=== PATIENT | female | born 1960 ===

== ENCOUNTER 2018-01-23 16:47 | Inpatient (IN) | payer BC ==
[~2018-01-23] VITALS: Ht 152.4 cm; Wt 62.1 kg
[~2018-01-23 16:47] MED LIST changes: -AZIT-1 PO; -FLU44R INH; -LEVA15HF INH; -PRED-1 PO
[2018-01-23] MEDS ORDERED: ALBUTEROL/IPRATROPIUM 3 ML NEB NEB ONE (17:10)
[2018-01-23] MEDS ORDERED: methylPREDNIS SUCC 125 MG/2ML IVP ONE (17:10)
--- NOTE | 2018-01-23 17:10 | ER Report ---
History and Physical Time Seen By MD: 17:10 Hx. of Stated Complaint: sent from urgent care with copd/resp issues. unable to keep o2 about 75% without supplimental HPI/ROS CHIEF COMPLAINT: Cough HISTORY OF PRESENT ILLNESS: 58-year-old female with no past medical history other than long time tobacco use, quit smoking 4 months ago, presents with 2 weeks of shortness of breath and cough. She reports the severity is moderate. She was seen in urgent care today and found to be hypoxic into the 70s. She has never been on home oxygen. Workup at urgent care includes a normal chest x-ray EKG, labs including CBC, metabolic panel, troponin, d-dimer, flu screen all normal. Given albuterol nebulizer treatment at urgent care but she remained hypoxic improving only to 78% on room air. She was sent to the ER for further evaluation. She denies fever, runny nose, rash, chest pain or discomfort. REVIEW OF SYSTEMS: Constitutional: No fever, no chills. Eyes: No discharge. ENT: No sore throat. Cardiovascular: No chest pain, no palpitations. Respiratory: As above. Gastrointestinal: No abdominal pain, no vomiting. Genitourinary: No hematuria. Musculoskeletal: No back pain. Skin: No rashes. Neurological: No headache. Allergies: Coded Allergies: ketorolac (Verified Allergy, Intermediate, KIDNEY PROBLEM, 01/23/18) morphine (Verified Adverse Reaction, Intermediate, HALLUCINATION, 01/23/18) Home Meds Discontinued Reported Medications Naproxen Na-Diphenhydramin HCl (Aleve Pm Caplet) 1 Each Tablet 03/18/15 Discontinued Scripts Hydrocodone/Acetaminophen (Lortab 5-325 mg Tablet) 1 Each Tablet, 1-2 TAB PO Q6H Y for PAIN, #12 Prov:DIONY BRADSHAWE DO 03/22/15 Ciprofloxacin 500 MG/5 ML ORAL SUSP (Ciprofloxacin 500 MG/5 ML ORAL SUSP) 500 Mg /5 Ml [facility].mc.rec, 500 MG PO BID, #14 BOT Prov:SARINA BRADSHAW DO 03/22/15 Metronidazole (FLAGYL) 500 Mg Tablet, 500 MG PO TID, #21 TAB Prov:AUGUSTINEHECTORSARINA DO 03/22/15 Ondansetron (ZOFRAN ODT) 4 Mg Tab.rapdis, 4 MG PO Q6H Y for NAUSEA/VOMITING, # 20 TAB 0 Refills Prov:MADELEINERICKY Disla MD 03/18/15 Past Medical/Surgical History No significant past medical history Hx Smoking: Yes Smoking Status: Current: Every Day Smoker Exposure to Second Hand Smoke?: Yes Hx Substance Use Disorder: No Hx Alcohol Use: No Constitutional Vital Sign - Last 24 Hours 01/23/18 01/23/18 01/23/18 01/23/18 16:52 17:11 17:20 17:20 Temp 97.9 Pulse 74 78 Resp 22 18 B/P (MAP) 147/84 Pulse Ox 91 86 O2 Delivery Nasal Cannula Room Air O2 Flow Rate 2.0 01/23/18 01/23/18 17:30 17:30 Pulse 85 Resp 18 Pulse Ox 96 O2 Delivery Nasal Cannula O2 Flow Rate 1.5 Physical Exam General Appearance: The patient is alert, has no immediate need for airway protection and no signs of toxicity. Eyes: Pupils equal and round no pallor or injection. ENT, Mouth: Mucous membranes are moist. Respiratory: No increased work of breathing, diffuse wheezing is noted. No rhonchi. Cardiovascular: Regular rate and rhythm. Gastrointestinal: Abdomen is soft and non tender, no masses, bowel sounds normal. Neurological: Alert and oriented 3, no motor or sensory deficits. Skin: Warm and dry, no rashes. Musculoskeletal: Neck is supple non tender. Extremities are nontender, nonswollen and have full range of motion. DIFFERENTIAL DIAGNOSIS: After history and physical exam differential diagnosis was considered for shortness of breath including but not limited to pulmonary infectious process, COPD, asthma, pulmonary embolus and congestive heart failure. Medical Decision Making Data Points Laboratory Hematology Test 01/23/18 17:03 Group A Streptococcus Screen Negative (NEGATIVE) Chemistry Test 01/23/18 17:03 Group A Streptococcus Screen Negative (NEGATIVE) EKG/Imaging EKG Interpretation 12 lead EKG: Rhythm: normal sinus rhythm, rate 74 bpm [place]: normal QRS: normal ST segments: normal ED Course/Re-evaluation ED Course Patient is a 58-year-old female, previous heavy tobacco use, presents with hypoxia, shortness of breath and cough. She has never been diagnosed with COPD but her exam today together with wheezing hypoxia and normal urgent care workup including negative chest x-ray, negative d-dimer, negative troponin and normal EKG is consistent with a COPD exacerbation. She was given DuoNeb and Solu- Medrol in the ER and required 2 L of oxygen to maintain sats in the 90s. I spoke with the hospitalist who agreed with the patient continue COPD treatments and discharged patient on appropriate therapy. Decision to Disposition Date: Jan 23, 2018 Decision to Disposition Time: 17:54 Depart Departure Latest Vital Signs Vital Signs Date Time Temp Pulse Resp B/P (MAP) Pulse Ox O2 Delivery O2 Flow Rate FiO2 01/23/18 17:30 96 Nasal Cannula 1.5 01/23/18 17:30 85 18 01/23/18 16:52 97.9 147/84 Impression: Primary Impression: COPD exacerbation Additional Impression: Hypoxia Condition: Improved Disposition: Admitted from ER New Scripts No Active Prescriptions or Reported Meds Problem Qualifiers HOWARD CUNNINGHAM MD Jan 23, 2018 17:10
--- NOTE | 2018-01-23 17:35 | EKG ---
FACILITY: [facility] PATIENT NAME: KERA ERNST : [id number] MR: [id number] V: [id number] EXAM DATE: ORDERING PHYSICIAN: HOWARD CUNNINGHAM TECHNOLOGIST: CIELO Garcia Reason : RESPIRATORY Blood Pressure : / mmHG Vent. Rate : 074 BPM Atrial Rate : 074 BPM P-R Int : 142 ms QRS Dur : 068 ms QT Int : 388 ms P-R-T Axes : 034 012 001 degrees QTc Int : 430 ms Normal sinus rhythm T inversion consistent with inferior ischemia vs normal variant When compared with ECG of 06-JAN-2014 10:06, Criteria for Septal infarct are no longer present ST no longer elevated in Lateral leads Inverted T waves have replaced nonspecific T wave abnormality in Inferior leads Nonspecific T wave abnormality now evident in Lateral leads Confirmed by TALIB ELLIS ([id number]) on 01/24/2018 7:47:55 PM Referred By: Confirmed By:TALIB ELLIS
[2018-01-23 18:26] VITALS: BP 105/90
--- NOTE | 2018-01-23 19:01 | History & Physical ---
History of Present Illness Chief Complaint Patient was sent from urgent care with COPD exacerbation and she was unable to keep her O2 sat about 75% without supplement History of Present Illness Mrs. Fulton is a 58-year-old female with no past medical history other than 30 pack years of smoking cigarettes. She quit smoking 4 months ago. She mentioned that she [place] to this [place] area 5 years ago from [place] and since then she has been feeling off and on PACE. She has developed URTI recently and today she presented to the ER @ [facility] with 2 weeks of shortness of breath and cough. She reported the severity was moderate. She was seen in urgent care today and found to be hypoxic into the O2 sat 70s. She has never been on home oxygen. Workup at urgent care was in normal range including a normal chest x-ray, EKG, labs including CBC, metabolic panel, troponin, d-dimer, flu screen. She was given albuterol nebulizer treatment at urgent care but she remained hypoxic improving only to 78% on room air. She was sent to the ER for further evaluation. She was given DuoNeb and Solu-Medrol in the ER and required 2 L of oxygen to maintain sats in the 90s. She denied fever , runny nose, rash, chest pain or discomfort. History Home Meds Discontinued Reported Medications Naproxen Na-Diphenhydramin HCl (Aleve Pm Caplet) 1 Each Tablet 03/18/15 Discontinued Scripts Hydrocodone/Acetaminophen (Lortab 5-325 mg Tablet) 1 Each Tablet, 1-2 TAB PO Q6H Y for PAIN, #12 Prov:SARINA BRADSHAW DO 03/22/15 Ciprofloxacin 500 MG/5 ML ORAL SUSP (Ciprofloxacin 500 MG/5 ML ORAL SUSP) [facility], #14 BOT Prov:SARINA BRADSHAW DO 03/22/15 Metronidazole (FLAGYL) 500 Mg Tablet, 500 MG PO TID, #21 TAB Prov:SARINA BRADSHAW DO 03/22/15 Ondansetron (ZOFRAN ODT) 4 Mg Tab.rapdis, 4 MG PO Q6H Y for NAUSEA/VOMITING, # 20 TAB 0 Refills Prov:RICKY SALVADOR MD 03/18/15 Allergies: Coded Allergies: ketorolac (Verified Allergy, Intermediate, KIDNEY PROBLEM, 01/23/18) morphine (Verified Adverse Reaction, Intermediate, HALLUCINATION, 01/23/18) Hx Smoking: Yes Smoking Status: Current: Every Day Smoker Exposure to Second Hand Smoke?: Yes Hx Alcohol Use: No Review of Systems Constitutional: No Fever, No Weight Loss, No Chills Neurological: No Weakness, No Dizziness Cardiovascular: No Chest Pain, No Palpitations Respiratory: Shortness of Breath, Cough, Wheezing Gastrointestinal: No Nausea, No Vomiting, No Diarrhea, No Dysphagia, No Constipation, No Abdominal Pain Genitourinary: No Dysuria, No Hematuria Musculoskeletal: No Pain, No Sprain, No Strain Psychiatric: No Depression, No Anxiety Exam Vital Signs Vital Signs Date Time Temp Pulse Resp B/P (MAP) Pulse Ox O2 Delivery O2 Flow Rate FiO2 01/23/18 18:26 98.4 79 16 105/90 (95) 91 Nasal Cannula 2.5 General Appearance: Alert, Awake, No Acute Distress, Afebrile Neuro: No Gross deficits Eyes: PERRLA ENT: Normal Neck: No Masses Cardiovascular: Normal Rhythm & Peripheral Pulses, No Edema, No JVD Respiratory: Other (mild to moderate respiratory distress with bilateral scattered wheezes, no rales or rhonchi) GI: Abd Soft and Non-Tender : Normal Extremities: Soft and Non Tender, Warm, Pulses Integumentary: Skin Intact without Lesion / Mass Psych: Alert & Oriented X3, Appropriate Mood & Affect Medical Decision Making EKG / Imaging Monitor Interpretation: Normal Sinus Rhythm Pre-Admit Course ED Medications reviewed Medical Record Review: Yes Assessment and Plan Problems: (1) COPD exacerbation Status: Acute Assessment & Plan: I will admit her in medical floor for further evaluation and management I will start IVF NS @80ml/h I will start Zithromax 500mg IN q daily I will start Protonix 40mg po qd I will start Solumedrol 40mg IN bid I will start Duoneb treatments 1 unit dose q 4h I will start Albuterol 1 unit dose q2h as needed I will use Zofran 4mg IV q46 as needed for nausea Early ambulation for DVTP I will use Oxygen to maintain her O2 sat >90% I will arrange home oxygen and nebulizer on d/c Condition Guarded Time Spent on Plan of Care: > 30 min Copies to: PAMELA PEGUERO MD; MIGUELINA JOHNSON MD Venous Thromboembolism VTE Risk Physician Assess for VTE Risk: Yes Patient's VTE Risk: Low VTE Diagnostic Test 2 Days Prior to Admit: No Antithrombotics Is Pt On Any Antithrombotics?: No Exam Sepsis Risk: No Definite Risk ANITA WADDELL MD Jan 23, 2018 19:01
[2018-01-23] MEDS ORDERED: ALBUTEROL 2.5 MG/3 ML NEB NEB PRN (19:45)
[2018-01-23] MEDS ORDERED: ACETAMINOPHEN 325 MG TAB PO PRN (19:45)
[2018-01-23] MEDS ORDERED: ONDANSETRON 4 MG/2 ML VIAL IVP PRN (19:45)
[2018-01-23] MEDS ORDERED: NS(*) 0.9% 1000 ML BAG 1,000 ML IV PRN (19:45)
[2018-01-23] MEDS: AZITHROMYCIN(*) 500 MG 500 MG in NS(*) 0.9% 250 ML BAG 250 ML IVPB SCH (20:36)
[2018-01-23] MEDS: ALBUTEROL/IPRATROPIUM 3 ML NEB NEB SCH (21:22)
[2018-01-24] MEDS: ALBUTEROL/IPRATROPIUM 3 ML NEB NEB SCH ×3 (01:16→09:10)
[2018-01-24 01:25] VITALS: BP 116/71
[2018-01-24] MEDS: methylPREDNIS SUCC 125 MG/2ML IVP SCH ×2 (05:32→17:20)
[2018-01-24 05:46] LABS: PLATELET COUNT, AUTOMATED 253 K/uL (150-450)
[2018-01-24 07:38] VITALS: BP 109/57
[2018-01-24] MEDS ORDERED: LEVALBUTEROL 0.63 MG/3 ML NEB NEB PRN (09:10)
[2018-01-24] MEDS: PANTOPRAZOLE SOD 40 MG TABEC PO SCH (09:25)
[2018-01-24 11:14] VITALS: Ht 152.4 cm; Wt 62.1 kg
--- NOTE | 2018-01-24 11:34 | Hospitalist Progress Note ---
Subjective Progress Notes Subjective Mrs. Fulton is a 58-year-old female with no past medical history other than 30 pack years of smoking cigarettes. She quit smoking 4 months ago. She mentioned that she moved to this high [place] area 5 years ago from [place] and since then she has been feeling off and on PACE. She has developed URTI recently and today she presented to the ER @ [facility] with 2 weeks of shortness of breath and cough. She reported the severity was moderate. She was seen in urgent care today and found to be hypoxic into the O2 sat 70s. She has never been on home oxygen. Workup at urgent care was in normal range including a normal chest x-ray, EKG, labs including CBC, metabolic panel, troponin, d-dimer, flu screen. She was given albuterol nebulizer treatment at urgent care but she remained hypoxic improving only to 78% on room air. She was sent to the ER for further evaluation. She was given DuoNeb and Solu-Medrol in the ER and required 2 L of oxygen to maintain sats in the 90s. She denied fever , runny nose, rash, chest pain or discomfort. 01/24: She is afebrile and hemodynamically stable today. She did not have good night sleep due to her reaction to her nebulizer treatment with tachycardia and anxiety. She is currently on Albuterol. Otherwise she is feeling better than yesterday. Patient Complains of: Neurological: No: Weakness, Dizziness Cardiovascular: Palpitations, No: Chest Pain Respiratory: Cough, Shortness of Breath, Other, No: Congestion, Wheezing Gastrointestinal: No Nausea, No Vomiting Genitourinary: No Dysuria, No Hematuria Musculoskeletal: No: Pain, Sprain, Strain Physical Exam Vital Signs Date Time Temp Pulse Resp B/P (MAP) Pulse Ox O2 Delivery O2 Flow Rate FiO2 01/24/18 09:20 102 18 01/24/18 09:20 93 Nasal Cannula 1.5 01/24/18 07:38 97.7 109/57 (74) Intake and Output 01/25/18 07:00 Intake Total 832 ml Balance 832 ml IV Total 832 ml General Appearance: Alert, Awake, No Acute Distress, Afebrile Neuro: No Gross deficits Eyes: PERRLA ENT: Normal Neck: No Masses Cardiovascular: Normal Rhythm & Peripheral Pulses Respiratory: No Respiratory Distress, Clear to Auscultation (decrease air entry ) GI: Soft and Non-Tender Extremities: Soft and Non Tender Integumentary: Skin Intact without Lesion / Mass Psych: Alert & Oriented X3, Appropriate Mood & Affect Result Diagram: 01/24/1852101/24/18521 Monitor Interpretation: Normal Sinus Rhythm Assessment and Plan Problems: (1) COPD exacerbation Status: Acute Assessment & Plan: 01/23: I will admit her in medical floor for further evaluation and management I will start IVF NS @80ml/h I will start Zithromax 500mg IN q daily I will start Protonix 40mg po qd I will start Solumedrol 40mg IN bid I will start Duoneb treatments 1 unit dose q 4h I will start Albuterol 1 unit dose q2h as needed I will use Zofran 4mg IV q46 as needed for nausea Early ambulation for DVTP I will use Oxygen to maintain her O2 sat >90% I will arrange home oxygen and nebulizer on d/c 01/24: I will change her nebulizer treatments to Xopenex I will plan to change her Zithromax to po in am I will add Xanax .25mg po at hs for her sleep or Tea for sleep she uses at home health worker to arrange Oxygen and nebulizer for home in am I will change her Solumedrol to Prednisone 40mg in am Incentive spirometry Time Spent on Plan of Care: < 30 min Copies to: PAMELA PEGUERO MD Exam Sepsis Risk: No Definite Risk ANITA WADDELL MD Jan 24, 2018 11:33
[2018-01-24] MEDS: LEVALBUTEROL 0.63 MG/3 ML NEB NEB SCH ×3 (13:15→21:27)
[2018-01-24 17:23] VITALS: BP 95/53
[2018-01-24] MEDS ORDERED: ALPRAZolam 0.25 MG TAB PO PRN (18:15)
[2018-01-24] MEDS: AZITHROMYCIN(*) 500 MG 500 MG in NS(*) 0.9% 250 ML BAG 250 ML IVPB SCH (20:11)
[2018-01-24 20:17] VITALS: BP 105/49
[2018-01-25] MEDS: LEVALBUTEROL 0.63 MG/3 ML NEB NEB SCH ×2 (01:31→05:11)
[2018-01-25] MEDS: methylPREDNIS SUCC 125 MG/2ML IVP SCH (05:22)
[2018-01-25 05:24] VITALS: BP 103/66
[2018-01-25] MEDS ORDERED: LEVALBUTEROL 15 GM INH INH PRN (08:40)
[2018-01-25] MEDS: PANTOPRAZOLE SOD 40 MG TABEC PO SCH (10:21)
[2018-01-25 11:10] VITALS: BP 105/59
[2018-01-25] MEDS ORDERED: FLU44R INH (14:07)
[2018-01-25] MEDS ORDERED: AZIT-1 PO (14:07)
--- NOTE | 2018-01-25 14:16 | Hospitalist Depart ---
Discharge Summary Reason for Hosp/Final Diag: (1) COPD exacerbation Status: Acute Hospital Course & Plan: She presented with 2 weeks of cough and SOB. She was hypoxic in the ER. She was placed on azithromycin and IV methylprednisolone. She is feeling much better and lungs are clear. However, she still has an O2 requirement. She will go home on 3 more days of azithromycin and a steroid taper. She feels like her heart is racing with albuterol, so will send her home with a Xopenex inhaler prn, which she has tolerated. Also, will send her home with Fluticasone inhaler. I am hesitant to add a LABA or antimuscarinic inhaler with her her heart racing symptoms. (2) Hyperglycemia Status: Acute Hospital Course & Plan: Secondary to steroids. She needs close follow up as an outpatient to follow for T2DM. Departure Weight (Pounds): 137 Result Diagram: 01/24/18 0501/24/18 05 Item Value Date Time Random Glucose 86 mg/dl 01/23/18 1453 Troponin I < 0.012 ng/ml 01/23/18 1453 B-Type Natriuretic Peptide 11 pg/ml 01/23/18 1453 Total Bilirubin 0.5 mg/dl 01/23/18 1453 Aspartate Amino Transf (AST/SGOT) 34 U/L 01/23/18 1453 Alanine Aminotransferase (ALT/SGPT) 31 U/L 01/23/18 1453 Alkaline Phosphatase 133 U/L H 01/23/18 1453 Item Value Date Time Neutrophils (%) (Auto) 83.3 % H 01/24/18 05 Lymphocytes (%) (Auto) 15.8 % L 01/24/18 05 Monocytes (%) (Auto) 0.7 % L 01/24/18 05 Eosinophils (%) (Auto) 0.0 % L 01/24/18 05 Basophils (%) (Auto) 0.2 % L 01/24/18521 Whole Blood Glucose 159 mg/DL H 01/24/18 0231 Random Glucose 214 mg/dl H 01/24/18 05 Group A Streptococcus Screen Negative 01/23/18 1703 Urine RBC None /HPF 01/24/18 05 Urine WBC <1 /HPF 01/24/18 0545 Urine Squamous Epithelial Cells Many /LPF H 4/22/18 0545 Urine Bacteria Negative /HPF 01/24/18544 SPEC #: [id number] IVONE: 01/23/18 STATUS: COMP REQ #: [id number] RECD: 01/23/[address]: HOWARD CUNNINGHAM MD SOURCE: THROAT ENTR: 01/23/[address]: MIRNAES: ORDERED: STREPSCRNCONF Procedure Result Verified STREP SCREEN CONFIRMATION CULT Final 01/25/18 CONFIRMATORY CULTURE NEGATIVE FOR GROUP A STREP Imaging CXR at Urgent Care was reportedly normal. EKG Vent. Rate : 074 BPM Atrial Rate : 074 BPM P-R Int : 142 ms QRS Dur : 068 ms QT Int : 388 ms P-R-T Axes : 034 012 001 degrees QTc Int : 430 ms Normal sinus rhythm T inversion consistent with inferior ischemia vs normal variant When compared with ECG of 06-JAN-2014 10:06, Criteria for Septal infarct are no longer present ST no longer elevated in Lateral leads Inverted T waves have replaced nonspecific T wave abnormality in Inferior leads Nonspecific T wave abnormality now evident in Lateral leads Confirmed by TALIB ELLIS ([id number]) on 01/24/2018 7:47:55 PM Condition: Improved Discharge: Home Discharge Instructions Home Meds Active Scripts Levalbuterol Tartrate (XOPENEX HFA) 15 Gm Hfa.aer.ad, 0 GM INH Q4HR Y for sob for 30 Days, Prov:TAILB ELLIS MD 01/25/18 Prednisone 10 Mg Tab (PREDNISONE 10 MG TAB) 10 Mg Tablet, 10-20 MG PO QDAY, #13 TAB 2 pills twice a day for 2 days, the 2 pills once a day for 2 days, then 1 pill once a day for 2 days Prov:TALIB ELLIS MD 01/25/18 Fluticasone Prop 44 Mcg (FLOVENT HFA 44 MCG) 44 Mcg Inha, 44 MCG INH BID, #1 INH Use with a spacer Prov:TALIB ELLIS MD 01/25/18 Azithromycin (ZITHROMAX) 250 Mg Tablet, 1 TAB PO HS, #3 TAB Prov:TALIB ELLIS MD 01/25/18 Discontinued Reported Medications Naproxen Na-Diphenhydramin HCl (Aleve Pm Caplet) 1 Each Tablet 03/18/15 Discontinued Scripts Hydrocodone/Acetaminophen (Lortab 5-325 mg Tablet) 1 Each Tablet, 1-2 TAB PO Q6H Y for PAIN, #12 Prov:SARINA BRADSHAW DO 03/22/15 Ciprofloxacin 500 MG/5 ML ORAL SUSP (Ciprofloxacin 500 MG/5 ML ORAL SUSP) 500 Mg /5 Ml [facility].mc.rec, 500 MG PO BID, #14 BOT Prov:SARINA BRADSHAW DO 03/22/15 Metronidazole (FLAGYL) 500 Mg Tablet, 500 MG PO TID, #21 TAB Prov:SARINA BRADSHAW DO 03/22/15 Ondansetron (ZOFRAN ODT) 4 Mg Tab.rapdis, 4 MG PO Q6H Y for NAUSEA/VOMITING, # 20 TAB 0 Refills Prov:RICKY SALVADOR MD 03/18/15 Diet: Regular Activity: As Tolerated Special Instructions: Go to the ER for worsening shortness of breath Copies to: PAMELA PEGUERO MD Venous Thromboembolism Antithrombotics Is Pt On Any Antithrombotics?: No TALIB ELLIS MD Jan 25, 2018 14:16
[2018-01-25] MEDS ORDERED: LEVA15HF INH (14:42)
[2018-01-25] MEDS ORDERED: PRED-1 PO (14:42)
== END 2018-01-25 15:53 | disposition home or self-care (01) | DRG 192 ==
LOC: ER 16:59 → MED 18:08
PROVIDERS: ADMIT Specialist; ATTEND Specialist
DX: J44.1 Chronic obstructive pulmonary disease with (acute) exacerbation (principal); R09.02 Hypoxemia; R73.9 Hyperglycemia, unspecified; T38.0X5A Adverse effect of glucocorticoids and synthetic analogues, initial encounter; Z87.891 Personal history of nicotine dependence; Z88.5 Allergy status to narcotic agent; Z88.8 Allergy status to other drugs, medicaments and biological substances; Z90.49 Acquired absence of other specified parts of digestive tract
CPT/HCPCS: 36415; 36416; 81001; 82310; 82374; 82435; 82565; 82947; 82948; 84132; 84295; 84520; 85025; 87081; 87880; 93005; 94640; 94667; 94668; 99285; J0456; J2930; J7030; J7050; J7614

== ENCOUNTER → 2018-01-23 | Outpatient (REF) | payer BC ==
[~2018-01-23] MED LIST: AZIT-1 PO; CIPR500S3 PO; FLU44R INH; HYDR-317 PO; LEVA15HF INH; LOR5/325 PO; METR-1 PO; NAPR1TAB10; ONDA4TAB PO; PRED-1 PO; ROBC PO
[2018-01-23 16:02] LABS: PLATELET COUNT, AUTOMATED 286 K/uL (150-450)
== END ==
PROVIDERS: ATTEND Family Medicine
DX: J18.9 Pneumonia, unspecified organism (principal)
CPT/HCPCS: 82040; 82247; 82310; 82374; 82435; 82565; 82947; 83880; 84075; 84132; 84155; 84295; 84450; 84460; 84484; 84520; 85025; 85379

== ENCOUNTER 2018-01-25 08:00 | Outpatient (RCR) | payer SELFPAY ==
[2018-01-24 11:14] VITALS: BMI 26.8
[2018-01-25] MEDS ORDERED: AZIT-1 PO (14:07)
[2018-01-25] MEDS ORDERED: FLU44R INH (14:07)
[2018-01-25] MEDS ORDERED: PRED-1 PO (14:42)
[2018-01-25] MEDS ORDERED: LEVA15HF INH (14:42)
--- NOTE | 2018-01-26 16:23 | Transitional Care Management ---
TCM Discharge Criteria Transitional Care Comment: 01/25 dx with COPD this hospital stay. review COPD and O2 teaching with lifelong monitoring to prevent exacerbations. 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
--- NOTE | 2018-01-28 13:54 | Transitional Care Management ---
Assessment Visit Type: Telephone Visit Spoke with: Benita Cardiac: WNL Respiratory: WNL Except Respiratory Comment: 01/28 On 2.5L, she bought a pulseox and has been trialing room air. RA sats 89%, 94-96 on O2. only mild SOB with activity. GI: Nutrition: WNL Wt Gain/Loss: WNL Constipation?: No : WNL Musculoskeletal, Exercise: WNL Musculoskeletal, Excercise Com: 01/28 Has workout equipment at home she uses regularly. Mobility/Falls: WNL Integumentary: WNL Feeling of Well Being: WNL Except Feeling of Well Being Comment: "It is depressing to have to wear oxygen." Socialization: WNL Pain/Management: WNL Scheduled Follow-Up with Provi: Yes Questions for Future PCP Visit: 01/28 need for continued O2. Needed or Pending Tests: No Following Discharge Instructio: Yes TCM Discharge Criteria Transitional Care Comment: 01/25 dx with COPD this hospital stay. review COPD and O2 teaching with lifelong monitoring to prevent exacerbations. 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 Home visit is declined, as she and her family are trying to relocate to a lower elevation as suggested by Dr Medina. Copies to: PAMELA PEGUERO MD, MICHAEL K Jan 28, 2018 13:54
--- NOTE | 2018-02-06 12:43 | Transitional Care Management ---
Assessment Cardiac: WNL Respiratory: WNL Except Respiratory Comment: 01/28 On 2.5L, she bought a pulseox and has been trialing room air. RA sats 89%, 94-96 on O2. only mild SOB with activity. GI: Nutrition: WNL Wt Gain/Loss: WNL Constipation?: No : WNL Musculoskeletal, Exercise: WNL Musculoskeletal, Excercise Com: 01/28 Has workout equipment at home she uses regularly. Mobility/Falls: WNL Integumentary: WNL Feeling of Well Being: WNL Except Feeling of Well Being Comment: "It is depressing to have to wear oxygen." Socialization: WNL Pain/Management: WNL Scheduled Follow-Up with Provi: Yes Questions for Future PCP Visit: 01/28 need for continued O2. Needed or Pending Tests: No Following Discharge Instructio: Yes TCM Discharge Criteria Transitional Care Comment: 01/25 dx with COPD this hospital stay. review COPD and O2 teaching with lifelong monitoring to prevent exacerbations. 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 Home visit is declined, as she and her family are trying to relocate to a lower elevation as suggested by Dr Medina. 02/04 unable to contact. 02/06 Left message. ERVIN OLVERA February 06, 2018 12:43
--- NOTE | 2018-02-08 13:59 | Transitional Care Management ---
Assessment Cardiac: WNL Respiratory: WNL Except Respiratory Comment: 01/28 On 2.5L, she bought a pulseox and has been trialing room air. RA sats 89%, 94-96 on O2. only mild SOB with activity. GI: Nutrition: WNL Wt Gain/Loss: WNL Constipation?: No : WNL Musculoskeletal, Exercise: WNL Musculoskeletal, Excercise Com: 01/28 Has workout equipment at home she uses regularly. Mobility/Falls: WNL Integumentary: WNL Feeling of Well Being: WNL Except Feeling of Well Being Comment: "It is depressing to have to wear oxygen." Socialization: WNL Pain/Management: WNL Scheduled Follow-Up with Provi: Yes Questions for Future PCP Visit: 01/28 need for continued O2. Needed or Pending Tests: No Following Discharge Instructio: Yes TCM Discharge Criteria Transitional Care Comment: 01/25 dx with COPD this hospital stay. review COPD and O2 teaching with lifelong monitoring to prevent exacerbations. 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 Home visit is declined, as she and her family are trying to relocate to a lower elevation as suggested by Dr Medina. 02/04 unable to contact. 02/06 Left message. 02/08 Left message, Discharging her due to inability to contact. ERVIN OLVERA February 08, 2018 13:59
== END 2018-02-08 15:59 | disposition home or self-care (01) ==
LOC: TCM 08:00
PROVIDERS: ATTEND Nurse Practitioner
DX: Z02.9 Encounter for administrative examinations, unspecified (principal)

== ENCOUNTER → 2018-02-11 | Outpatient (CLI) | payer SELFPAY ==
[2018-01-24 11:14] VITALS: BMI 26.8
[~2018-02-11] MED LIST changes: +AZIT-1 PO; +FLU44R INH; +LEVA15HF INH; +PRED-1 PO
--- NOTE | 2018-02-18 16:25 | RADIOLOGY IMAGING REPORT ---
FACILITY: [facility] [place] PATIENT NAME: KERA ERNST : [id number] MR: [id number] V: [id number] EXAM DATE: ORDERING PHYSICIAN: PAMELA PEGUERO TECHNOLOGIST: Lesly Ballard EXAMINATION:TWO-DIMENSIONAL ECHOCARDIOGRAPH REASON: 2D Measurements (normal values in centimeters) LV endLV endRV endVent.LV PostAorticLeftPercent DiastolicSystolicDiastolicSeptumWallRootAtriumShortening (3.5-5.7)(0.9-2.6)(0.6-1.1)(0.6-1.1)(2.0-3.7)(1.9-4.0)(25-35%) [id number]% STROKE VOLUME: 33ml ESTIMATED EJECTION FRACTION:65-70% RESULTS: 1. The left ventricle is normal in size. All segments contracted briskly. LVEF = 65-70%. 2. The aortic valve was a normal trileaflet structure with no sclerotic or stenotic changes. 3. The mitral valve was normal in appearance. 4. The tricuspid valve was normal in appearance. 5. The right heart chambers were normal in size. 6. No pericardial effusion present. OVERALL IMPRESSION: 1. This was a normal echocardiogram with no evidence of valvular disease or intercardiac shunts. Left ventricular function was normal with a left ventricular ejection of 65-70%. Dictated by: Grupo Wheeler on 02/12/2018 at 15:39 Transcribed by: MAEVE on 02/15/2018 at 9:34 Approved by: Grupo Wheeler on 02/17/2018 at 14:56 [facility]
== END ==
LOC: US 01:38
PROVIDERS: ATTEND Family Medicine
DX: R01.1 Cardiac murmur, unspecified (principal)
CPT/HCPCS: 93306